=== PATIENT | male | born 1945 | race Two or more races ===

== ENCOUNTER 2022-04-27 13:50 | Emergency (ER) | payer OTHER, MEDICARE ==
[2022-04-27] MEDS ORDERED: METHOCARBAMOL 500 MG TABLET PO ONE (14:12)
[2022-04-27 14:13] VITALS: BP 175/92; PULSE 90; RESP 16; TEMP 97.4; BMI 34.4
[2022-04-27] MEDS ORDERED: METHOCARBAMOL 500 MG TABLET ONE (14:16)
== END 2022-04-27 14:56 | disposition home or self-care (01) ==
LOC: FER 13:50
DX: M62.838 Other muscle spasm (principal); M79.652 Pain in left thigh
CPT/HCPCS: 93971-TC; 99284-25

== ENCOUNTER 2022-05-18 08:56 | Emergency (ER) | payer OTHER, MEDICARE ==
[2022-05-18 09:15] VITALS: RESP 18; BMI 34.4
[2022-05-18 12:24] LABS: BASO % 0.5 % (0-2.0); EOS % 1.1 % (0-4.5); HEMOGLOBIN 13.7 GM/dL (11.7-16.9); LYMPH % 20.4 % (8-40); MCH 27.8 pg (25.7-33.7); MCHC 33.4 g/dl (32.0-35.9); MEAN CELL VOLUME 83.1 fl (80-96); MEAN PLT VOLUME 6.9 fl (7.5-11.1); MONO % 6.9 % (3.8-10.2); NEUT % 71.1 % (42.8-82.8); PLATELET COUNT 188 10^3/uL (134-434); RBC 4.93 M/mm3 (4.00-5.60); RDW 14.7 % (11.9-15.9)
[2022-05-18 12:46] LABS: ALBUMIN 4.1 g/dl (3.4-5.0); BLOOD UREA NITROGEN 27.6 mg/dL (7-18); CALCIUM 9.8 mg/dL (8.5-10.1)
[2022-05-18 12:51] LABS: BILIRUBIN,TOTAL 0.5 mg/dL (0.2-1); TOT PROT 7.9 g/dl (6.4-8.2)
[2022-05-18 13:03] LABS: ERYTHROCYTE SEDIMENTATION RATE 64 mm/hr (0-20)
[2022-05-18] MEDS ORDERED: LORazepam 2 MG/ML SDV VIAL IVPUSH ONE (13:16)
[2022-05-18 15:48] VITALS: BP 158/78; PULSE 80; TEMP 97.9
== END 2022-05-18 15:48 | disposition home or self-care (01) ==
LOC: JER 08:56
PROC: 3E0333Z Introduction of Anti-inflammatory into Peripheral Vein, Percutaneous Approach (ICD-10-PCS; principal; 2022-05-18)
DX: M79.652 Pain in left thigh (principal)
CPT/HCPCS: 36415; 73718-TC-LT; 80053; 85025; 85651; 86140; 93005; 93010; 99285-25